=== PATIENT | male | born 1970 | race Caucasian/White ===

== ENCOUNTER 2022-05-17 11:27 | Observation (INO) ==
[2022-05-17 12:30] LABS: Basophils # 0.1 K/mcL (0.0-0.2); Basophils % 0.5 %; Eosinophils # 0.2 K/mcL (0.0-0.6); Eosinophils % 1.5 %; Hematocrit 46.2 % (37.5-50.1); Hemoglobin 15.6 g/dL (12.9-16.9); Immature Granulocytes % 0.5 % (0-4); Lymphocytes # 1.3 K/mcL (0.6-4.6); Lymphocytes % 13.3 %; Mean Corpuscular HGB Conc 33.8 g/dL (31.6-35.5); Mean Corpuscular Hemoglobin 31.3 pg (28.0-33.3); Mean Corpuscular Volume 92.6 fL (83.0-100.0); Mean Platelet Volume 10.1 fL (9.4-12.4); Monocytes # 0.8 K/mcL (0.0-1.3); Monocytes % 7.6 %; Neutrophils # 7.7 K/mcL (1.6-8.9); Platelet Count 227 K/mcL (140-400); Red Blood Count 4.99 M/mcL (4.19-5.50); Segmented Neutrophils % 76.6 %; White Blood Count 10.1 K/mcL (4.3-11.1)
[2022-05-17 12:45] LABS: Bacteria,Urine Few per hpf (None-Few); Bilirubin,Urine Negative (Negative); Blood,Urine Negative (Negative); Clarity,Urine Clear (Clear); Color,Urine Yellow (Yellow); Glucose,Urine (UA) Normal (Normal); Ketones,Urine Trace mg/dL (Negative); Leukocyte Esterase,Urine Negative (Negative); Mucus,Urine Many per lpf (None-Few); Nitrite,Urine Negative (Negative); PH,Urine 5.5 pH Units (5.0-8.0); Protein,Urine 50 mg/dL (Neg-Trace); RBC,Urine 0-3 per hpf (0-3); Specific Gravity,Urine > 1.030 (1.010-1.025); Urobilinogen,Urine Normal (Normal); WBC,Urine 0-3 per hpf (0-3)
[2022-05-17 13:12] LABS: Albumin 4.2 g/dL (3.5-5.7); Albumin/Globulin Ratio 1.3 (1.1-2.2); Bilirubin,Direct 0.2 mg/dL (0.0-0.2); Bilirubin,Indirect 0.4 mg/dL (0.0-1.0); Bilirubin,Total 0.6 mg/dL (0.3-1.0); Calcium 9.7 mg/dL (8.6-10.3); Globulin 3.2 g/dL (2.4-3.5); Potassium 4.1 mEq/L (3.5-5.1); Total Protein 7.4 g/dL (6.4-8.9)
[2022-05-17] MEDS ORDERED: Iopamidol - 370 500 ML MLS IVP ONE (13:56)
[2022-05-17] MEDS ORDERED: *HR* OxyCODONE/APAP 5/325 TABLET PO PRN (16:56)
[2022-05-17] MEDS ORDERED: Ondansetron 4 MG/2 ML VIAL IVP PRN (16:56)
[2022-05-17] MEDS ORDERED: Ibuprofen 600 MG TABLET PO PRN (16:56)
[2022-05-17] MEDS: 0.9 % Sodium Chloride 1,000 ML IVC SCH (17:14)
[2022-05-17] MEDS: Cefepime HCl 2,000 MG in 0.9 % Sodium Chloride 10 ML IVP SCH (21:16)
[2022-05-18 02:54] LABS: Basophils # 0.1 K/mcL (0.0-0.2); Basophils % 0.6 %; Eosinophils # 0.3 K/mcL (0.0-0.6); Eosinophils % 3.1 %; Hematocrit 41.3 % (37.5-50.1); Immature Granulocytes % 0.7 % (0-4); Lymphocytes # 1.8 K/mcL (0.6-4.6); Lymphocytes % 22.5 %; Mean Corpuscular HGB Conc 33.4 g/dL (31.6-35.5); Mean Corpuscular Hemoglobin 31.5 pg (28.0-33.3); Mean Corpuscular Volume 94.3 fL (83.0-100.0); Monocytes # 0.8 K/mcL (0.0-1.3); Monocytes % 9.4 %; Neutrophils # 5.2 K/mcL (1.6-8.9); Platelet Count 196 K/mcL (140-400); Red Blood Count 4.38 M/mcL (4.19-5.50); Red Cell Distribution Width 12.9 % (11.5-14.5); Segmented Neutrophils % 63.7 %; White Blood Count 8.2 K/mcL (4.3-11.1)
[2022-05-18 02:57] LABS: Hemoglobin 13.8 g/dL (12.9-16.9)
[2022-05-18 03:14] LABS: Calcium 8.9 mg/dL (8.6-10.3); Potassium 4.1 mEq/L (3.5-5.1)
[2022-05-18] MEDS: Cefepime HCl 2,000 MG in 0.9 % Sodium Chloride 10 ML IVP SCH ×3 (03:43→17:03)
[2022-05-18] MEDS: 0.9 % Sodium Chloride 1,000 ML IVC SCH (13:41)
[2022-05-18] MEDS: MetroNIDAZOLE 500 MG/100 ML 500 MG/100 ML BAG IVPB SCH (17:04)
[2022-05-18] MEDS ORDERED: Piperacillin/Tazobactam 3.375 GM in 0.9 % Sodium Chloride Mini Bag 100 ML IVPB SCH (17:30)
[2022-05-19] MEDS: Cefepime HCl 2,000 MG in 0.9 % Sodium Chloride 10 ML IVP SCH ×3 (02:26→19:02)
[2022-05-19] MEDS: MetroNIDAZOLE 500 MG/100 ML 500 MG/100 ML BAG IVPB SCH ×3 (02:29→19:02)
[2022-05-19] MEDS: 0.9 % Sodium Chloride 1,000 ML IVC SCH (08:48)
[2022-05-20] MEDS: Cefepime HCl 2,000 MG in 0.9 % Sodium Chloride 10 ML IVP SCH ×2 (02:08→08:31)
[2022-05-20] MEDS: MetroNIDAZOLE 500 MG/100 ML 500 MG/100 ML BAG IVPB SCH ×2 (02:10→08:30)
[2022-05-20 06:48] VITALS: O2SAT 97
[2022-05-20] MEDS: 0.9 % Sodium Chloride 1,000 ML IVC SCH (08:30)
[2022-05-20 10:56] VITALS: BP 120/84; PULSE 83; TEMP 98.1
[2022-05-20] MEDS ORDERED: levoFLOXacin 750 MG TABLET PO SCH (11:15)
[2022-05-20] MEDS ORDERED: metroNIDAZOLE 500 MG TABLET PO SCH (15:00)
== END 2022-05-20 12:59 | disposition home or self-care (01) ==
LOC: 3BNU 11:27 → EMEROOARM 11:27 → 3BNU 18:52
PROVIDERS: ADMIT Surgery; ATTEND Surgery

== ENCOUNTER 2022-06-18 10:18 | Observation (INO) ==
[2022-06-18] MEDS ORDERED: Morphine Sulfate 2 MG/ML SYRINGE IVP ONE ×2 (11:14→20:20)
[2022-06-18] MEDS ORDERED: Ondansetron 4 MG/2 ML VIAL IVP STA (11:14)
[2022-06-18] MEDS ORDERED: Iopamidol - 370 500 ML MLS IVP ONE (11:14)
[2022-06-18 11:27] LABS: Basophils % 0.3 %; Eosinophils # 0.2 K/mcL (0.0-0.6); Eosinophils % 1.6 %; Hematocrit 42.3 % (37.5-50.1); Hemoglobin 14.5 g/dL (12.9-16.9); Immature Granulocytes % 0.4 % (0-4); Lymphocytes # 1.8 K/mcL (0.6-4.6); Lymphocytes % 18.7 %; Mean Corpuscular HGB Conc 34.3 g/dL (31.6-35.5); Mean Corpuscular Hemoglobin 31.8 pg (28.0-33.3); Mean Corpuscular Volume 92.8 fL (83.0-100.0); Mean Platelet Volume 10.3 fL (9.4-12.4); Monocytes # 0.8 K/mcL (0.0-1.3); Monocytes % 8.8 %; Neutrophils # 6.6 K/mcL (1.6-8.9); Platelet Count 214 K/mcL (140-400); Red Blood Count 4.56 M/mcL (4.19-5.50); Red Cell Distribution Width 13.5 % (11.5-14.5); Segmented Neutrophils % 70.2 %; White Blood Count 9.4 K/mcL (4.3-11.1)
[2022-06-18 11:34] LABS: INR 1.2; Prothrombin Time 12.9 Seconds (9.4-12.1)
[2022-06-18 11:36] LABS: Activated Partial Thrombo Time 33.5 Seconds (26.0-36.0)
[2022-06-18 11:47] LABS: BUN/Creatinine Ratio 16 (6-26); Blood Urea Nitrogen 15 mg/dL (6-20); Calcium 9.2 mg/dL (8.6-10.3); Carbon Dioxide 23 mEq/L (23-29); Chloride 107 mEq/L (98-107); Glucose 120 mg/dL (70-105); Osmolality,Calculated 288 (280-300); Potassium 3.9 mEq/L (3.5-5.1); Sodium 138 mEq/L (136-145); Troponin I < 0.03 ng/mL (< 0.04)
[2022-06-18] MEDS ORDERED: *HR* Heparin 5,000 UNIT/ML VIAL IVP PRN (13:53)
[2022-06-18] MEDS ORDERED: *HR* Heparin 5,000 UNIT/ML VIAL IVP ONE (13:53)
[2022-06-18] MEDS ORDERED: Heparin 25,000UNIT/250ML 1/2NS 25,000 UNIT/250 ML IV.SOLN IVC SCH ×2 (14:00)
[2022-06-18] MEDS: Heparin 25,000UNIT/250ML 1/2NS 25,000 UNIT/250 ML IV.SOLN IVC SCH (21:27)
[2022-06-18] MEDS ORDERED: Melatonin 3 MG TABLET PO PRN (23:09)
[2022-06-18] MEDS ORDERED: Ondansetron 4 MG/2 ML VIAL IVP PRN (23:09)
[2022-06-18] MEDS ORDERED: Naloxone 0.4 MG/ML INJ IVP PRN (23:09)
[2022-06-19 03:18] LABS: Hematocrit 41.3 % (37.5-50.1); Hemoglobin 13.8 g/dL (12.9-16.9); Mean Corpuscular HGB Conc 33.4 g/dL (31.6-35.5); Mean Corpuscular Hemoglobin 31.5 pg (28.0-33.3); Mean Corpuscular Volume 94.3 fL (83.0-100.0); Platelet Count 208 K/mcL (140-400); Red Blood Count 4.38 M/mcL (4.19-5.50); Red Cell Distribution Width 13.5 % (11.5-14.5); White Blood Count 8.9 K/mcL (4.3-11.1)
[2022-06-19 03:23] LABS: BUN/Creatinine Ratio 16 (6-26); Blood Urea Nitrogen 14 mg/dL (6-20); Calcium 8.7 mg/dL (8.6-10.3); Carbon Dioxide 25 mEq/L (23-29); Chloride 105 mEq/L (98-107); Glucose 100 mg/dL (70-105); Osmolality,Calculated 285 (280-300); Sodium 137 mEq/L (136-145)
[2022-06-19] MEDS: *HR* Heparin 5,000 UNIT/ML VIAL IVP PRN ×2 (03:49→19:36)
[2022-06-19] MEDS: Heparin 25,000UNIT/250ML 1/2NS 25,000 UNIT/250 ML IV.SOLN IVC SCH (08:42)
[2022-06-20] MEDS: Heparin 25,000UNIT/250ML 1/2NS 25,000 UNIT/250 ML IV.SOLN IVC SCH ×2 (00:59→11:08)
[2022-06-20 01:51] LABS: Basophils # 0.1 K/mcL (0.0-0.2); Basophils % 0.7 %; Eosinophils # 0.2 K/mcL (0.0-0.6); Eosinophils % 2.8 %; Hematocrit 42.1 % (37.5-50.1); Hemoglobin 13.9 g/dL (12.9-16.9); Immature Granulocytes % 0.6 % (0-4); Lymphocytes # 2.3 K/mcL (0.6-4.6); Lymphocytes % 31.2 %; Mean Corpuscular Hemoglobin 30.8 pg (28.0-33.3); Mean Corpuscular Volume 93.1 fL (83.0-100.0); Mean Platelet Volume 9.9 fL (9.4-12.4); Monocytes # 0.6 K/mcL (0.0-1.3); Monocytes % 8.9 %; Platelet Count 208 K/mcL (140-400); Red Blood Count 4.52 M/mcL (4.19-5.50); Red Cell Distribution Width 13.2 % (11.5-14.5); Segmented Neutrophils % 55.8 %; White Blood Count 7.2 K/mcL (4.3-11.1)
[2022-06-20 02:03] LABS: INR 1.1; Prothrombin Time 12.7 Seconds (9.4-12.1)
[2022-06-20 03:42] LABS: Calcium 8.7 mg/dL (8.6-10.3)
[2022-06-20] MEDS ORDERED: Multivit/Ca/Min/Fe/FA 1 TAB TABLET PO SCH (09:00)
[2022-06-20 11:00] VITALS: BP 124/84; PULSE 90; TEMP 98.7; O2SAT 94
[2022-06-20] MEDS ORDERED: *HR* Rivaroxaban 15 MG TABLET PO SCH (12:00)
== END 2022-06-20 15:35 | disposition home or self-care (01) ==
LOC: EMEROOARM 10:18 → 2NENU 10:18 → SUATTDRO 23:45 → 2NENU 06-19 00:25
PROVIDERS: ADMIT Internal Medicine; ATTEND Internal Medicine